=== PATIENT | female | born 1995 | race Caucasian/White ===

== ENCOUNTER 2021-09-04 08:28 | Emergency (ER) | payer OTHER ==
[~2021-09-04] VITALS: Ht 157.5 cm; Wt 77.2 kg
[2021-09-04 08:30] VITALS: BP 123/82
--- NOTE | 2021-09-04 09:25 | RAD ---
EXAM: Right ankle, 2 views. HISTORY: Fall. COMPARISON: None. FINDINGS: 2 views of the right ankle are obtained. There is no fracture, dislocation or subluxation. The ankle mortise is intact. There is no ossicular lesion. There is medial predominant ankle soft tis dorene swelling. IMPRESSION: Medial predominant ankle soft tissue swelling. No acute osseous finding. Electronically signed by: Hamida Baez MD (09/04/2021 9:22 AM) [id number]
--- NOTE | 2021-09-04 09:41 | PHYS DOC ---
General Adult EDM: Chief Complaint: ANKLE PROBLEM HPI: HPI: 26-year-old female presents with right ankle pain. Patient stepped in a pothole and because of breaking out yesterday. Her foot rolled medially. She tried to stay off of it last night but it is still very swollen and painful today. She denies any other injuries. Review of Systems: Review of Systems: Constitutional: Denies fever or chills Eyes: Denies change in visual acuity HENT: Denies nasal congestion or sore throat Respiratory: Denies cough or shortness of breath Cardiovascular: Denies chest pain or edema GI: Denies abdominal pain, nausea, vomiting, bloody stools or diarrhea : Denies dysuria Musculoskeletal: Right lateral ankle pain Integument: Denies rash Neurologic: Denies headache, focal weakness or sensory changes Endocrine: Denies polyuria or polydipsia Lymphatic: Denies swollen glands Psychiatric: Denies depression or anxiety Physical Exam: PE: Constitutional: Well developed, well nourished, no acute distress, non-toxic appearance. [] HENT: Normocephalic, atraumatic, bilateral external ears normal, oropharynx moist, no oral exudates, nose normal. [] Eyes: PERRLA, EOMI, conjunctiva normal, no discharge. [] Neck: Normal range of motion, no tenderness, supple, no stridor. [] Cardiovascular: Heart rate regular rhythm, no murmur [] Lungs & Thorax: Bilateral breath sounds clear to auscultation [] Abdomen: Bowel sounds normal, soft, no tenderness, no masses, no pulsatile masses. [] Skin: Warm, dry, no erythema, no rash. [] Back: No tenderness, no CVA tenderness. [] Extremities: Tenderness to right lateral ankle, swelling. [] Neurologic: Alert and oriented X 3, normal motor function, normal sensory function, no focal deficits noted. [] Psychologic: Affect normal, judgement normal, mood normal. [] EKG: EKG: [] Radiology/Procedures: Radiology/Procedures: [] Impressions: EXAM: Right ankle, 2 views. HISTORY: Fall. COMPARISON: None. FINDINGS: 2 views of the right ankle are obtained. There is no fracture, dislocation or subluxation. The ankle mortise is intact. There is no ossicular lesion. There is medial predominant ankle soft tissue swelling. IMPRESSION: Medial predominant ankle soft tissue swelling. No acute osseous finding. Electronically signed by: Hamida Baez MD (09/04/2021 9:22 AM) [id number] DICTATED AND SIGNED BY: HAMIDA BAEZ MD DATE: 09/04/21921 CC: LITZY DEAN DO; PCP,NO ~MTH0 0 Heart Score: C/O Chest Pain: N/A Risk Factors: Risk Factors: DM, Current or recent (<one month) smoker, HTN, HLP, family history of CAD, obesity. Risk Scores: Score 0 - 3: 2.5% MACE over next 6 weeks - Discharge Home Score 4 - 6: 20.3% MACE over next 6 weeks - Admit for Clinical Observation Score 7 - 10: 72.7% MACE over next 6 weeks - Early Invasive Strategies Course & Med Decision Making: Course & Med Decision Making Pertinent Labs and Imaging studies reviewed. (See chart for details) Patient's ankle x-ray is negative for fracture. This appears to be a sprain. We will place her in a stirrup splint. I have advised RICE therapy. We will give her [place] 5/325 in the ER for her discomfort. I advised ibuprofen and ice at home. She is stable for discharge at this time. [] Christal Disclaimer: Christal Disclaimer: This electronic medical record was generated, in whole or in part, using a voice recognition dictation system. Departure Departure: Impression: Primary Impression: Moderate right ankle sprain Disposition: HOME / SELF CARE / HOMELESS Condition: STABLE Referrals: PCP,NO (PCP) Patient Instructions: Ankle Sprain, Acute, with Phase I Rehab[facility] LITZY DEAN DO Sep 04, 2021 09:41
[2021-09-04] MEDS ORDERED: HYDROcodone/APAP 5/325MG 1 TAB TABLET PO ONE (10:00)
== END 2021-09-04 10:26 | disposition home or self-care (01) ==
LOC: ER 08:28
DX: S93.401A Sprain of unspecified ligament of right ankle, initial encounter (principal); X50.9XXA Other and unspecified overexertion or strenuous movements or postures, initial encounter; Y93.89 Activity, other specified; Y92.89 Other specified places as the place of occurrence of the external cause; Y99.8 Other external cause status
CPT/HCPCS: 29515; 73610; 99283